=== PATIENT | female | born 1970 | race Caucasian/White ===

== ENCOUNTER 2018-05-31 09:23 | Emergency (ER) | payer OTHER ==
[~2018-05-31] VITALS: Ht 162.6 cm; Wt 72.2 kg
[2018-05-31 09:26] VITALS: BP 156/104
[2018-05-31] MEDS ORDERED: DOXY100C43 PO (10:13)
== END 2018-05-31 10:18 | disposition home or self-care (01) ==
LOC: ER 09:23
DX: S41.132A Puncture wound without foreign body of left upper arm, initial encounter (principal); S61.032A Puncture wound without foreign body of left thumb without damage to nail, initial encounter; Z79.2 Long term (current) use of antibiotics; W57.XXXA Bitten or stung by nonvenomous insect and other nonvenomous arthropods, initial encounter; Y93.89 Activity, other specified; Y92.89 Other specified places as the place of occurrence of the external cause; Y99.8 Other external cause status
CPT/HCPCS: 99283

== ENCOUNTER 2018-12-29 13:44 | Inpatient (IN) | payer BC, OTHER ==
[~2018-12-29] VITALS: Ht 162.6 cm; Wt 74.0 kg
[2018-12-29] MEDS ORDERED: ondansetron 4mg rapidly disintigrating tab PO ONE (14:00)
[2018-12-29] MEDS ORDERED: normal saline 1000ml 1,000 ML IV ONE (14:20)
[2018-12-29] MEDS ORDERED: morphine 4 MG/ML inj SYRINge IV ONE (14:20)
--- NOTE | 2018-12-29 14:24 | NUR ---
REPORT TO PRIMARY RN DANIELLA
[2018-12-29 14:37] LABS: BASOPHILS # (AUTO) 0.1 X10'3 (0-0.2); BASOPHILS % (AUTO) 0.4 % (0-1); EOSINOPHILS % (AUTO) 0 % (0-6); HEMATOCRIT 46.2 % (35.0-45.0); HEMOGLOBIN 15.9 g/dl (12.0-16.0); LYMPHOCYTES # (AUTO) 1.5 X10'3 (1.1-4.8); LYMPHOCYTES % (AUTO) 7.3 % (21-51); MEAN CORPUSCULAR HEMOGLOBIN 30.8 PG (27.0-31.0); MEAN CORPUSCULAR HGB CONC 34.4 g/dL (33.0-36.5); MEAN CORPUSCULAR VOLUME 89.5 FL (78-98); MEAN PLATELET VOLUME 9.3 FL (7.4-10.4); MONOCYTES # (AUTO) 1.3 X10'3 (0-0.9); MONOCYTES % (AUTO) 6.6 % (2-12); NEUTROPHILS # (AUTO) 17.3 X10'3 (1.8-7.7); NEUTROPHILS % (AUTO) 85.7 % (42-75); PLATELET COUNT 251 X10'3 (140-440); RED BLOOD COUNT 5.16 X10'6 (4.20-5.60); RED CELL DISTRIBUTION WIDTH 13.6 % (11.5-14.5); WHITE BLOOD COUNT 20.1 X10'3 (4.5-11.0)
--- NOTE | 2018-12-29 14:45 | NUR ---
Pt out to CT
[2018-12-29 14:59] LABS: PLATELET ESTIMATE NORMAL; TOTAL CELLS COUNTED 100
[2018-12-29] MEDS ORDERED: piperacillin/tazo 4.5gm/100ml 100 ML IV ONE (15:05)
[2018-12-29] MEDS ORDERED: normal saline 1000ML IV soln IVB ONE ×2 (15:05)
[2018-12-29] MEDS ORDERED: HYDROmorphone 1 mg/ml syringe IV ONE (15:10)
[2018-12-29 15:24] LABS: CLARITY,URINE CLOUDY (Clear); COLOR,URINE YELLOW (Yellow); GLUCOSE, URINE NEGATIVE (Neg); KETONES,URINE 15 mg/dl (Neg); LEUKOCYTE ESTERASE ,URINE NEGATIVE (Neg); NITRITES, URINE NEGATIVE (Neg); OCCULT BLOOD,URINE SMALL (Neg); PROTEIN,URINE 30 mg/dl (Neg); UA COLLECTION TYPE CLN CATCH MIDSTREAM; UROBILINOGEN,URINE 0.2 E.U/dL (0.2-1.0)
[2018-12-29 15:30] LABS: MUCUS STRANDS MANY /LPF (Neg); SQUAMOUS EPITHELIAL CELL,UR MANY /LPF (FEW)
[2018-12-29 15:31] LABS: BACTERIA,URINE 1+ /HPF (Neg); WBC,URINE 0-4 /HPF (0-4)
[2018-12-29] MEDS: normal saline 1000ml 1,000 ML IV SCH (15:36)
[2018-12-29 15:39] LABS: PARTIAL THROMBOPLASTIN TIME 24 SECONDS (22-32); PROTHROMBIN TIME 10.2 SECONDS (9.0-12.0)
[2018-12-29 15:40] LABS: ALANINE AMINOTRANSFERASE 17 U/L (12-78); ALBUMIN 3.6 G/DL (3.4-5.0); ALBUMIN/GLOBULIN RATIO 0.9 (1.1-1.5); ALKALINE PHOSPHATASE 61 IU/L (46-116); ANION GAP 9 (8-16); ASPARTATE AMINO TRANSFERASE 12 U/L (10-37); BILIRUBIN,TOTAL 0.7 MG/DL (0.1-1.0); BLOOD UREA NITROGEN 10 MG/DL (7-18); BUN/CREATININE RATIO 13.5 (6.6-38.0); CALCIUM 8.6 MG/DL (8.5-10.1); CHLORIDE 101 MMOL/L (99-107); CREATININE 0.74 MG/DL (0.40-0.90); GLUCOSE 118 MG/DL (70-104); LIPASE 1382 U/L (73-393); MAGNESIUM 1.7 MG/DL (1.5-2.4); POTASSIUM 3.6 MMOL/L (3.5-5.1); SODIUM 135 MMOL/L (135-145); TOTAL CARBON DIOXIDE 24.6 MMOL/L (24-32); TOTAL PROTEIN 7.5 G/DL (6.4-8.2); eGFR 84 ML/MIN
[2018-12-29] MEDS ORDERED: magnesium 4gm in 100ml NS 100 ML IV PRN (15:40)
[2018-12-29] MEDS ORDERED: potassium Cl 40MEQ/NS 500ml 500 ML IV PRN ×3 (15:40→15:45)
[2018-12-29] MEDS ORDERED: potassium Cl 20 mEq SR tablet PO PRN ×2 (15:40)
[2018-12-29] MEDS ORDERED: magnesium hydroxide 30ml (MOM) UD suspension PO PRN (15:40)
[2018-12-29] MEDS ORDERED: acetaminophen 325mg tablet PO PRN ×2 (15:40)
[2018-12-29] MEDS ORDERED: magnesium 2GM in 50ml NS 50 ML IV PRN (15:40)
[2018-12-29] MEDS ORDERED: magnesium Cl slow-release 64mg tablet PO PRN (15:40)
[2018-12-29] MEDS ORDERED: mag hydrox/Alum hydrox/simeth 30ml oral suspension PO PRN (15:40)
[2018-12-29] MEDS ORDERED: HYDROcodone/acetaminophen 5mg/325mg tablet PO PRN (15:40)
[2018-12-29] MEDS ORDERED: ondansetron/PF 4mg/2ml inj IV PRN ×3 (15:40→23:20)
[2018-12-29] MEDS ORDERED: HYDROmorphone inj. 0.5 MG/0.5 ML DISP.SYRIN IV PRN (15:40)
[2018-12-29] MEDS ORDERED: HYDROcodone/acetaminophen 10/325mg tab PO PRN ×2 (15:40→23:20)
[2018-12-29] MEDS ORDERED: piperacillin/tazo 4.5gm/100ml 100 ML IV SCH (16:00)
[2018-12-29] MEDS ORDERED: NO HOME MEDS (16:24)
[2018-12-29] MEDS ORDERED: LORazepam 0.5 MG tablet PO PRN (17:15)
[2018-12-29] MEDS ORDERED: hydrALAZINE 20mg/ml inj. IV PRN (17:25)
[2018-12-29] MEDS: HYDROmorphone 1 mg/ml syringe IV PRN ×2 (17:38→19:18)
[2018-12-29 17:45] LABS: HCG SERUM QL NEGATIVE
[2018-12-29] MEDS: nicotine 14mg patch - 24hr TD SCH (19:15)
--- NOTE | 2018-12-29 19:20 | NUR ---
pt having pain that spiked, spasming type pain. Administered the dose of dilaudid a little early.
[2018-12-29] MEDS ORDERED: temazepam 15mg capsule PO PRN (21:00)
[2018-12-29] MEDS ORDERED: ringers solution, lacted 1,000 ML IV SCH (21:19)
[2018-12-29] MEDS ORDERED: meperidine/PF 25mg/ml syringe IV PRN ×3 (21:20)
[2018-12-29] MEDS ORDERED: morphine 4 MG/ML inj SYRINge IV PRN ×2 (21:20)
[2018-12-29] MEDS ORDERED: proCHLORperazine 10 MG/2 ml inj IV PRN (21:20)
--- NOTE | 2018-12-29 21:38 | NUR ---
MONICAAR to Srini OSWALD in OR, and sending for the pt in about 15 minutes.
[2018-12-29] MEDS ORDERED: fentaNYL/PF 50MCG/1 ML 2ML syringe ONE (21:46)
[2018-12-29] MEDS ORDERED: rocuronium 10mg/ml inj IV ONE (21:46)
[2018-12-29] MEDS ORDERED: midazolam 2 mg/2 ml injection ONE (21:46)
[2018-12-29] MEDS ORDERED: LIDOcaine 2% 5ml jelly ONE (21:48)
[2018-12-29] MEDS ORDERED: propofol inj 20 ML IV ONE (21:48)
[2018-12-29] MEDS ORDERED: LIDOcaine 2% (20mg/ml) 5ml vial ONE (21:48)
[2018-12-29] MEDS ORDERED: BUPIVAcaine/PF 2.5mg/ml (0.25%) 10ml vial ONE (21:53)
[2018-12-29] MEDS ORDERED: neostigmine methylsulfate 1 MG/ML 10ml vial ONE (22:02)
[2018-12-29] MEDS ORDERED: glycopyrrolate 0.2mg/ml inj ONE (22:02)
[2018-12-29] MEDS ORDERED: sevoflurane 250ml liquid IH ONE (22:02)
[2018-12-29] MEDS ORDERED: ondansetron/PF 4mg/2ml inj ONE (22:47)
[2018-12-29] MEDS ORDERED: dexamethasone sod phosphate 4mg/ml inj. ONE (22:47)
[2018-12-29] MEDS ORDERED: ketorolac trometh. 30mg/ml inj. ONE (23:02)
[2018-12-29 23:20] VITALS: BP 120/72
--- NOTE | 2018-12-29 23:20 | NUR ---
Received from OR via MEDICAL BED , accompanied by Anesthesiologist DR. HSIEH and report given by Anesthesiolgist. PT AWAKENS TO VOICE. O2 VIA MASK AT 10L IN PLACE. DRESSING TO ABD CDI. HATCH WITH GOOD CSM. 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 NO FC OR DRAINS NOTED. SCDS IN PLACE.
[2018-12-29 23:30] VITALS: BP 125/75
[2018-12-29 23:40] VITALS: BP 132/77
[2018-12-29 23:50] VITALS: BP 143/65
[2018-12-30] VITALS: BP 137/68
[2018-12-30 00:15] VITALS: BP 128/85
--- NOTE | 2018-12-30 00:20 | NUR ---
Report called to receiving nurse DEBI RN. Transferred via MEDICAL BED TO ROOM 345A. S.O. WITH PT WHEN MOVED. Belongings PURSE AND BAG X1 ON BED AT TIME OF TRANSFER. Special Issues communicated to receiving nurse. VSS ON 2L O2 VIA NC.
--- NOTE | 2018-12-30 00:25 | NUR ---
PATIENT ADMITTED TO ROOM 345A FROM RECOVERY ROOM AFTER LAP APPY WAS DONE BY DR. OLIVARES. PLACED COMFORTABLE IN BED. VITAL SIGNS MONITORED.
[2018-12-30] MEDS: normal saline 1000ml 1,000 ML IV SCH ×2 (01:36→05:45)
[2018-12-30] MEDS: piperacillin/tazo 4.5gm/100ml 100 ML IV SCH ×2 (01:37→08:21)
[2018-12-30 04:00] VITALS: BP 127/74
[2018-12-30 04:46] LABS: BASOPHILS % (AUTO) 0.1 % (0-1); EOSINOPHILS % (AUTO) 0 % (0-6); HEMATOCRIT 36.5 % (35.0-45.0); HEMOGLOBIN 12.2 g/dl (12.0-16.0); LYMPHOCYTES # (AUTO) 0.5 X10'3 (1.1-4.8); LYMPHOCYTES % (AUTO) 3.6 % (21-51); MEAN CORPUSCULAR HEMOGLOBIN 30.3 PG (27.0-31.0); MEAN CORPUSCULAR HGB CONC 33.4 g/dL (33.0-36.5); MEAN CORPUSCULAR VOLUME 90.6 FL (78-98); MEAN PLATELET VOLUME 9.3 FL (7.4-10.4); MONOCYTES # (AUTO) 0.5 X10'3 (0-0.9); MONOCYTES % (AUTO) 3.3 % (2-12); NEUTROPHILS # (AUTO) 13.8 X10'3 (1.8-7.7); PLATELET COUNT 163 X10'3 (140-440); RED BLOOD COUNT 4.03 X10'6 (4.20-5.60); RED CELL DISTRIBUTION WIDTH 13.6 % (11.5-14.5); WHITE BLOOD COUNT 14.8 X10'3 (4.5-11.0)
[2018-12-30 05:00] LABS: ALANINE AMINOTRANSFERASE 10 U/L (12-78); ALBUMIN 2.9 G/DL (3.4-5.0); ALBUMIN/GLOBULIN RATIO 0.9 (1.1-1.5); ALKALINE PHOSPHATASE 48 IU/L (46-116); ANION GAP 9 (8-16); ASPARTATE AMINO TRANSFERASE 11 U/L (10-37); BILIRUBIN,TOTAL 0.9 MG/DL (0.1-1.0); BLOOD UREA NITROGEN 8 MG/DL (7-18); BUN/CREATININE RATIO 11.4 (6.6-38.0); CALCIUM 7.8 MG/DL (8.5-10.1); CHLORIDE 106 MMOL/L (99-107); GLUCOSE 144 MG/DL (70-104); MAGNESIUM 1.7 MG/DL (1.5-2.4); POTASSIUM 3.7 MMOL/L (3.5-5.1); SODIUM 138 MMOL/L (135-145); TOTAL CARBON DIOXIDE 22.8 MMOL/L (24-32); TOTAL PROTEIN 6.3 G/DL (6.4-8.2); eGFR 90 ML/MIN
[2018-12-30] MEDS: HYDROmorphone 1 mg/ml syringe IV PRN ×2 (05:44→10:09)
--- NOTE | 2018-12-30 06:30 | NUR ---
Problems reprioritized. Patient report given, questions answered & plan of care reviewed with JULIA OSWALD.
[2018-12-30] MEDS ORDERED: levoTHYROXINE 25mcg tablet PO SCH (07:00)
[2018-12-30 07:35] VITALS: BP 128/79
[2018-12-30] MEDS ORDERED: K and/or MAG REPLACEMENT MC SCH (08:00)
[2018-12-30] MEDS: nicotine 14mg patch - 24hr TD SCH (08:22)
[2018-12-30] MEDS ORDERED: LEVO25TA7 PO (11:57)
[2018-12-30 12:00] VITALS: BP 128/82
[2018-12-30 13:21] VITALS: BP 159/87
[2018-12-30] MEDS ORDERED: HYDR-4383 PO (13:21)
--- NOTE | 2018-12-30 13:30 | NUR ---
Patient discharged home. All belongings taken from room. IV removed. Stable and appropriate for discharge. DC instructions reviewed with patient. Prescriptions called into [facility] in [place].
== END 2018-12-30 13:30 | disposition home or self-care (01) | DRG 341 ==
LOC: ER 13:45 → ED HOLD 15:36 → CMPBEDREQ 22:14 → PACU 23:36 → SUR 3N 12-30
PROVIDERS: ADMIT Family Medicine; ATTEND Family Medicine
PROC: 0DTJ4ZZ Resection of Appendix, Percutaneous Endoscopic Approach (ICD-10-PCS; principal; 2018-12-29 22:02)
DX: K35.80 Unspecified acute appendicitis (principal); K85.90 Acute pancreatitis without necrosis or infection, unspecified; E03.9 Hypothyroidism, unspecified; F17.210 Nicotine dependence, cigarettes, uncomplicated; R03.0 Elevated blood-pressure reading, without diagnosis of hypertension; F32.9 Major depressive disorder, single episode, unspecified; F41.1 Generalized anxiety disorder; Z79.890 Hormone replacement therapy; Z82.49 Family history of ischemic heart disease and other diseases of the circulatory system; Z79.899 Other long term (current) drug therapy
CPT/HCPCS: 96361; 96365; 96375; 99285; Z7506; 36415; 71045; 74176; 80053; 81001; 83605; 83690; 83735; 84145; 84443; 84484; 84703; 85025; 85610; 85730; 87040; 87070; 93005; A4315; A7000; J1100; J1170; J1885; J2001; J2175; J2250; J2270; J2405; J2543; J2704; J2710; J3010; J3490; J7030; J7120